=== PATIENT | female | born 1990 | race Caucasian/White ===

== ENCOUNTER 2018-09-26 10:49 | Emergency (ER) | payer OTHER ==
[2018-09-26 11:00] VITALS: BP 134/80
--- NOTE | 2018-09-26 12:21 | UC ---
Throat Pain/Nasal Ananda HPI - HPI Summary HPI Summary: one month hx of URI symptoms, improved, but over the past week has developed increasing congestion, sinus drainage with cough, and right ear pain without draiange. Feeling unwell, decreased appetite, no nausea, vomiting or diarrhea. - History of Current Complaint Chief Complaint: UCRespiratory Stated Complaint: CONGESTION, COUGH Time Seen by Provider: 09/26/18 12:09 Hx Last Menstrual Period: 08/30/18 ?: No Onset/Duration: Gradual Onset, Lasting Days Severity: Moderate Pain Intensity: 6 Cough: Nonproductive Associated Signs & Symptoms: Positive: Hoarseness, Sinus Discomfort - Allergies/Home Medications Allergies/Adverse Reactions: Allergies Allergy/AdvReac Type Severity Reaction Status Date / Time No Known Allergies Allergy Verified 09/26/18 11:00 Home Medications: Home Medications Dm/Acetaminophen/Doxylamine [Vicks Nyquil Cold & Flu N 15-6.25-325 mg] 1 cap PO 09/26/18 [History] PMH/Surg Hx/FS Hx/Imm Hx Previously Healthy: Yes - Surgical History Surgical History: None - Family History Known Family History: Positive: Hypertension - both parents - Social History Occupation: Employed Full-time Lives: With Family Alcohol Use: Daily Substance Use Type: None Smoking Status (MU): Never Smoked Tobacco Review of Systems All Other Systems Reviewed And Are Negative: Yes Constitutional: Positive: Fatigue Skin: Positive: Negative Eyes: Positive: Negative ENT: Positive: Sore Throat, Ear Ache Respiratory: Positive: Cough Cardiovascular: Positive: Negative Gastrointestinal: Positive: Negative Genitourinary: Positive: Negative Motor: Positive: Negative Neurovascular: Positive: Negative Musculoskeletal: Positive: Negative Neurological: Positive: Negative Psychological: Positive: Negative Is Patient Immunocompromised?: No Physical Exam Triage Information Reviewed: Yes Appearance: Ill-Appearing Vital Signs: Initial Vital Signs Temp 98.4 F 09/26/18 10:54 Pulse 94 09/26/18 10:54 Resp 18 09/26/18 10:54 BP 134/80 09/26/18 10:54 Pulse Ox 100 09/26/18 10:54 Eye Exam: Other - periorbital swelling. Eyes: Positive: Conjunctiva Inflamed - mild injection ENT: Positive: Pharyngeal erythema, TM bulging - right dull, red and bulging Dental Exam: Normal Neck: Positive: Supple, Nontender, No Lymphadenopathy Respiratory: Positive: Lungs clear, Normal breath sounds Cardiovascular: Positive: RRR, No Murmur Musculoskeletal Exam: Normal Psychological Exam: Normal Throat Pain/Nasal Course/Dx - Course Course Of Treatment: anoxicillin for right otitis media and sinusitis - Differential Dx/Diagnosis Differential Diagnosis/HQI/PQRI: Otitis Media, Pharyngitis, Sinusitis, Tonsillitis, URI Provider Diagnoses: acute right otitis media and pansinusitis Discharge - Sign-Out/Discharge Documenting (check all that apply): Patient Departure All imaging exams completed and their final reports reviewed: No Studies - Discharge Plan Condition: Stable Disposition: HOME Prescriptions: Amoxicillin PO (*) [Amoxicillin 875 MG (*)] 875 mg PO BID #20 tab Patient Education Materials: Ear Infection (ED) Referrals: Jeff Ordonez MD [Primary Care Provider] - Additional Instructions: You have been prescribed amoxicillin to treat sinusitis and right ear infection. You can use ibuprofen 600mg three or 4 times daily for control of pain. Follow up if cough persists beyond 1 or 2 weeks or you develop fever and are short of breath. - Billing Disposition and Condition Condition: STABLE Disposition: Home
== END 2018-09-26 12:45 | disposition home or self-care (01) ==
LOC: UCEAST 10:49
DX: H66.91 Otitis media, unspecified, right ear (principal); J32.4 Chronic pansinusitis
CPT/HCPCS: 99212; G0463